=== PATIENT | female | born 1935 | race Caucasian/White ===

== ENCOUNTER → 2020-09-11 12:58 | Outpatient (CLI) | payer MEDICARE, OTHER, SELFPAY ==
--- NOTE | 2020-09-11 13:08 | CT_ITS ---
STUDY: CT ABDOMEN AND PELVIS WITH CONTRAST REASON FOR EXAM: Female, 85 years old. Follow up malignant pseudomyxoma peritonei (5 years ago), HIPEC (hyperthermic intraperitoneal chemotherapy), partial colectomy, NIRAJ/BSO, splenectomy, appnedectomy. Prior hx bilateral breast cancer with mastectomy x 2, lymph nodes removed, reconstruction and chemotherapy, back surgery with hardware, hypertension. RADIATION DOSAGE (If Supplied By Facility): CTDIvol = ( 25.15 ) mGy, DLP = ( 1272.33 ) mGycm TECHNIQUE: Transaxial images were obtained from the dome of the diaphragm to the symphysis pubis without oral contrast. Oral and amp; IV Readi-CAT and amp; 100mL Isovue-300 was administered. Sagittal and coronal images were reconstructed. Individualized dose optimization techniques were used for this CT. COMPARISON: None. FINDINGS: The visualized lung bases are unremarkable. The visualized portions of the heart are within normal limits. Moderate amount of ascites primarily within the pelvis and subjacent to the anterior abdominal wall the right lower quadrant. 7 cm cyst in the posterior aspect of the dome of the liver. There are multiple gallstones. Status post splenectomy. Normal pancreas. Normal bilateral adrenal glands. Normal right kidney. Normal left kidney. Thick areas of decreased attenuation surrounding the greater and lesser curvatures of the stomach including into the lesser sac which may represent serosal implants. Similar areas are seen within the latoya hepatis and the falciform ligament. Normal small intestine. Normal colon. There is non-visualization of the appendix. Normal abdominal aorta. Normal inferior vena cava. Normal retroperitoneum. Normal urinary bladder. Right inguinal hernia containing similar areas of the decreased attenuation. 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 Correlation with prior studies would be useful. Electronically Signed: Rahul Oconnor MD at 17:26 EST Tel , Service support ,
[2020-09-11 14:13] LABS: CREATININE FINGERSTICK 1.03 mg/dL (0.55-1.02)
== END ==
PROVIDERS: PCP Family Medicine
DX: C78.6 Secondary malignant neoplasm of retroperitoneum and peritoneum (principal)
CPT/HCPCS: 74177; Q9967; A4216

== ENCOUNTER → 2021-01-18 10:24 | Outpatient (CLI) | payer MEDICARE, OTHER, SELFPAY | PROVIDERS: PCP Family Medicine; Visit Provider Family Medicine | DX: Z20.822 Contact with and (suspected) exposure to COVID-19 (principal) | CPT/HCPCS: 87635; U0002 ==